=== PATIENT | male | born 1980 | race African-American/Black ===

== ENCOUNTER 2017-08-06 19:07 | Emergency (ER) | payer MEDICAID, OTHER ==
[~2017-08-06] VITALS: Ht 170.2 cm; Wt 109.0 kg
[~2017-08-06 19:07] MED LIST: ALBUTEROL INHALER
[2017-08-06 21:05] LABS: CLARITY URINE CLEAR (CLEAR); COLOR URINE YELLOW (YELLOW); KETONES URINE NEGATIVE (NEGATIVE); LEUKOCYTE ESTERASE URINE 2+ (NEGATIVE); NITRITE URINE NEGATIVE (NEGATIVE); OCCULT BLOOD URINE TRACE (NEGATIVE); PROTEIN URINE NEGATIVE (NEGATIVE); SPECIFIC GRAVITY URINE 1.014 (1.005-1.030); UROBILINOGEN URINE 0.2 E.U./dL (0.2-1.0)
[2017-08-06] MEDS ORDERED: ACETAMINOPHEN WITH CODEINE 300/30MG TABLET PO ONE (22:45)
[2017-08-06] MEDS ORDERED: IBUPROFEN 600MG TABLET PO ONE (22:45)
[2017-08-07 01:35] VITALS: BP 129/78
== END 2017-08-07 01:50 | disposition home or self-care (01) ==
LOC: ER 19:07
DX: N43.3 Hydrocele, unspecified (principal); N23 Unspecified renal colic; N39.0 Urinary tract infection, site not specified; J45.909 Unspecified asthma, uncomplicated; E78.5 Hyperlipidemia, unspecified; F12.10 Cannabis abuse, uncomplicated
CPT/HCPCS: 76870; 81003; 93976; 99285